=== PATIENT | male | born 2000 | race Caucasian/White ===

== ENCOUNTER 2021-11-13 09:06 | Emergency (ER) | payer OTHER, SELFPAY ==
[2021-11-13 09:17] VITALS: BP 151/88; PULSE 86; RESP 16; TEMP 37.3; O2SAT 100
--- NOTE | 2021-11-13 09:35 | ED.SKABFB ---
HPI - Skin/Abscess/Foreign Bdy General Chief complaint: Skin/Abscess/Foreign Body Stated complaint: Cyst on Tailbone Time Seen by Provider: 11/13/21 09:40 Source: patient and RN notes reviewed Mode of arrival: ambulatory Limitations: no limitations History of Present Illness HPI narrative: 21-year-old male presents to the [facility] with complaints of a cyst on his tailbone. Patient states it started yesterday. Area is already draining. Half centimeter area to the tailbone. Denies any past medical history. Denies this happening in the past. No new abdominal pain, chest pain. MD complaint: abscess/boil Related Data Allergies Allergy/AdvReac Type Severity Reaction Status Date / Time Penicillins Allergy Unknown rash Verified 11/13/21 09:53 throat swells Review of Systems Review of Systems: All systems reviewed & are unremarkable except as noted in HPI and below Constitutional: Constitutional: Reports no additional constitutional complaints, Denies chills and Denies fever(s) Eyes: Eyes: Reports no additional eye complaints ENT: Reports system reviewed and no additional complaints, except as documented Cardiovascular: Cardiovascular: Reports no additional cardiovascular complaints Respiratory: Respiratory: Reports no additional respiratory complaints Gastrointestinal: Gastrointestinal: Reports no additional gastrointestinal complaints Musculoskeletal: Musculoskeletal: Reports no additional musculoskeletal complaints Integumentary/Breasts: Skin/Breast: Reports as per HPI and Reports erythema (Tailbone) Neurologic: Reports system reviewed and no additional complaints, except as documented Psychiatric: Psychiatric: Reports no additional psychiatric complaints Allergic/Immunologic: Allergic/Immunologic: Reports no additional allergic/immunologic complaints PMFSH Past Medical History Medical History (Updated 11/13/21 @ 11:19 by Digna Zelaya) No significant medical problems Surgical History Surgical History (Updated 11/13/21 @ 11:19 by Digna Zelaya) No significant past surgical history Social History Social History (Updated 11/13/21 @ 11:19 by Digna Zelaya) Living arrangements: with family Occupation/Education: student Gender identity (if verbalized by the patient): Male Comments At the time of my signature, I reviewed and agree with the nursing past medical, surgical, social, and family history. There is no relevant family history pertinent to the patient complaint. Exam Const: General: healthy appearing, no acute distress and alert Nutritional Appearance: well nourished and obese Orientation/consciousness: patient oriented x3 Limitations: no limitations HENMT: Head: normal to inspection Ears: external ears normal Eyes: Pupils: Equal, round and reactive pupils present Neck: Neck: normal visual inspection, no lymphadenopathy and no meningeal signs Chest: Chest palpation & inspection: normal inspection of the chest Resp: Effort & Inspection: normal respiratory effort Auscultation: clear to auscultation bilaterally Cardio: Rate: regular rate Rhythm: regular rhythm GI: GI Palp: Yes Soft to palpation, No Tenderness to palpation present (GI), No Guarding due to palpation present (GI), No Rigid due to palpation and No Rebound tenderness present Auscultation: normal bowel sounds Back/Spine/Pelvis: Back: no CVA tenderness Skin: Rashes: no rashes Wounds: wounds noted Other: 0.5x 0.5 cm red area upper gluteal cleft. No fluctuance noted. draining brownish thick drainage. Neuro: General: patient oriented x3, moves all extremities, no meningeal signs and no focal motor deficits Speech: normal speech Gait exam (Neuro): Normal gait present Extrem: General: normal to inspection Psych: Appearance: grossly normal and well kempt Mental Status: mental status grossly normal Affect: normal affect Attitude: cooperative Thought content: Yes Normal thought content present Course
== END 2021-11-13 10:00 | disposition home or self-care (01) ==
PROVIDERS: Emergency Provider Nurse Practitioner
DX: L02.31 Cutaneous abscess of buttock (principal)
CPT/HCPCS: 87070; 87075; 87076; 87077; 87185; 87205; 99213; G0463